=== PATIENT | female | born 1940 | race Caucasian/White ===

== ENCOUNTER 2024-10-31 16:02 | Emergency (ER) | payer OTHER, MEDICARE, MEDICAID, SELFPAY ==
[2024-10-31 16:05] VITALS: BMI 19.5
[2024-10-31 16:08] VITALS: PULSE 88; RESP 18; O2SAT 96
--- NOTE | 2024-10-31 16:15 | XR_ITS ---
Examination: CT brain head without contrast. 2-D sagittal coronal reconstructions Date and time of exam:October 31, 2024 1755 hrs. Comparison May 05, 2021 Indications: Patient fell this morning with injury to the head, head pain headache post injury CTDI: vol (mGy):47.3 DLP: (mGycm):999 Technique: Multiple CT axial sections of the brain have been obtained, 5 mm slice thickness. Contrast has not been administered. 2-D sagittal, coronal reconstructions have been obtained Low dose protocols were performed. One or more of the following dose reduction techniques were used; automated exposure control, adjustment of the mA and/or KV according to patient size, use of iterative reconstruction technique. Findings: No significant ventricular enlargement. Intra-axial or extra-axial hemorrhage density is not seen. No mass effect or midline shift Basal cisterns are not remarkable. Fourth ventricle is midline. Cranial vault intact. Impression: Negative for acute hemorrhage, mass effect or midline shift
--- NOTE | 2024-10-31 16:16 | XR_ITS ---
Examination: CT cervical spine without contrast 2-D sagittal reconstructions 2-D coronal reconstructions 3-D reconstructions. Exam date and time:October 31, 2024 1755 hrs. Indications: Patient fell this morning with injury to the neck, neck pain Comparison: May 05, 2021 CTDI:vol (mGy) 11.9 DLP: (mGycm) 248 Technique: Multiple 2 mm axial sections of the cervical spine have been obtained. The coronal and sagittal reconstructions have been obtained. 3-D reconstructions have been obtained. Low dose protocols were performed. One or more of the following dose reduction techniques were used; automated exposure control, adjustment of the mA and/or KV according to patient size, use of iterative reconstruction technique. Findings: Axial sections demonstrate intact base of the skull. C1 exhibit satisfactory relationship to the odontoid. No acute cervical vertebral body fracture seen. Alignment posterior spinous processes satisfactory. Prominent osteopenia Fusion C5-C6 Mild old appearing wedging T2, T3 Impression: No acute cervical fracture.
--- NOTE | 2024-10-31 16:16 | XR_ITS ---
Examination: CT maxillofacial, without intravenous contrast. 2-D sagittal reconstructions. 3-D reconstructions. Date and time of exam:October 31, 2024 1755 hrs. Comparison August 23, 2020 CTDI: vol (mGy):19.6 DLP: (mGycm):365 Indications: Patient fell this morning with injury to the face, forehead hematoma Technique: Multiple axial images of maxillofacial region, 3.0 mm slice thickness. 2-D sagittal and coronal reconstructions. 3-D reconstructions. Low dose protocols were performed. One or more of the following dose reduction techniques were used; automated exposure control, adjustment of the mA and/or KV according to patient size, use of iterative reconstruction technique. Findings: Soft tissue for head swelling Frontal bone frontal sinuses intact No nasal bone fracture Orbital rims intact No depression zygomatic arches Pterygoid plates maxilla and the mandible intact Impression: No acute facial fracture.
[2024-10-31 16:31] VITALS: BP 149/94; PULSE 76; RESP 19; TEMP 36.4; O2SAT 99
[2024-10-31 16:32] VITALS: BP 149/94; PULSE 71; RESP 70; TEMP 36.4; O2SAT 98
--- NOTE | 2024-10-31 16:40 | PD.EDFALL ---
ED Fall Injury RME/HPI General Chief Complaint: Fall Stated Complaint: FALL Time Seen by Provider: 10/31/24 16:10 Arrival date/time: 10/31/24 16:02 RME / HPI RME / HPI Narrative: This section includes all my notes and documentations, including HPI, PE, MDM, Procedure Notes, and PLAN. Vishal Hidalgo MD HPI: 84 year old female with history of Alzheimer's disease, dementia, diabetes, hyperlipidemia, anxiety presents to the ED [facility] from [facility] for evaluation of head injury after a fall today. Per medics, [place] staff reported patient fell forward from her wheelchair, striking her head on the floor. No LOC reported. No other complaints. ROS: All negative except as documented in HPI. Physical Exam: General:? Awake, confused at baseline.?? Head: 2.5 cm full?skin thickness laceration on the forehead with active bleeding. Eyes:? Conjunctivae and lids clear.?? ENT:? No nasal congestion.?? Neck:? Supple.?? Lungs:? No respiratory distress.?? Skin:? Warm and dry.?? Neuro:? Awake, confused at baseline. Laceration repair procedure note: The wound was prepped and draped in normal sterile fashion. Local anesthesia achieved with 1% lidocaine, 2 mL. Profuse irrigation performed with normal saline. Wound repaired with 7 apollo. Good approximation and hemostasis achieved. Tdap ordered. Topical ABX and dressing ordered. Patient tolerated well with no complications. 1800: Patient was signed out to Dr. Johnson pending UA and CT results and final disposition. Vishal Hidalgo MD Related Data Home Medications ?Medication ?Instructions ?Recorded ?Confirmed acetaminophen 650 mg rectal 650 mg IA Q4H PRN Fever 04/16/21 01/14/23 suppository bisacodyl 10 mg rectal suppository 10 mg IA Q72H PRN Constipation 04/16/21 01/14/23 lorazepam 0.5 mg tablet (Ativan) 0.25 mg PO Q6H PRN Anxiety 04/16/21 01/14/23 melatonin 5 mg chewable tablet 15 mg PO HS 04/16/21 01/14/23 ondansetron 8 mg disintegrating 8 mg PO Q6H PRN Nausea And Vomiting 04/16/21 01/14/23 tablet morphine concentrate 100 mg/5 mL 10 mg PO Q4H PRN Pain 04/17/21 01/14/23 (20 mg/mL) oral solution gabapentin 300 mg capsule 300 mg PO BID 01/14/23 01/14/23 oxymetazoline 0.05 % nasal spray 2 spray intranasal DAILY 01/14/23 01/14/23 (Afrin (oxymetazoline)) Allergies Allergy/AdvReac Type Severity Reaction Status Date / Time No Known Allergies Allergy Verified 01/17/23 08:36 Review of Systems Review of Systems Systems Reviewed: All systems reviewed, normal except as documented Past Medical History Past Medical History NEUROLOGIC: Positive Neurological Disorders, Dementia, Peripheral Neuropathy and Head Trauma CARDIAC: Positive Hypercholesterolemia RESPIRATORY: Positive Pneumonia GASTROINTESTINAL: Positive Gastrointestinal Disorders and Colitis GENITOURINARY: Positive Genitourinary Disorders REPRODUCTIVE: Positive Previous Pregnancies MUSCULOSKELETAL: Positive Musculoskeletal Disorders, Arthritis and Fractures (hip) ENT: Positive Head Trauma PSYCHO/SOCIAL: Positive Psychiatric Problems, Depression and Anxiety OTHER HISTORY: Positive Falls, Chicken Pox, Measles, Mumps and Pertussis Family History FAMILY HISTORY: Positive Family Cardiac Disorders, Family Cancer and Family Surgery Surgical History SURGICAL: Positive Open Reduction Internal Fixation (left) and Hysterectomy Social History SMOKING STATUS: Former smoker SUBSTANCE USE: does not use ED Exam Narrative Physical exam: As noted in HPI Course Quality Measures none Orders Category Date Time Status Straight [In and Out Catheter] X1 Care 10/31/24 16:15 Completed Wound Care [Wound Care] NOW Care 10/31/24 16:[address] cervical spine wo con Stat Exams 10/31/24 16:[address] facial bones wo con Stat Exams 10/31/24 16:[address] head/brain wo con Stat Exams 10/31/24 16:15 Completed UA [Urinalysis] Stat Lab 10/31/24 17:48 Completed Bacitracin Oint pkt Med 10/31/24 16:16 Discontinued 1 gm TOP X1 ONE Tet,Diphth,Pertuss(Acell)-Tdap [Boostrix Vacc] Med 10/31/24 16:16 Discontinued 0.5 ml IMI .ONCE ONE Vital Signs Vital signs: Vital Signs Temperature 97.6 F 10/31/24 16:31 Pulse Rate 76 10/31/24 16:31 Respiratory Rate 19 10/31/24 16:31 Blood Pressure 149/94 H 10/31/24 16:31 Pulse Oximetry (%) 99 10/31/24 16:31 Oxygen Delivery Method Room Air 10/31/24 16:31 Pulse ox is 99% on room air which is adequate. Fall MDM Narrative MDM Narrative:: IColette am scribing for and in the presence of Dr. Hidalgo. Patient data External records reviewed:: [facility] previous records (I reviewed ED visit on 04/17/2021), EMS form and [facility] records (I reviewed pmhx and medication list from [facility] ) Clinical information provided by:: EMS Social determinants that could affect healthcare access:: housing (SNF resident ) Patient has the following chronic illnesses:: Alzheimer's disease, dementia, diabetes, hyperlipidemia, anxiety How is presenting disease/condition affected by chronic disease/condition?: exacerbated by Evaluation data The following diagnostics were reviewed and interpreted by me:: other (specify) (Diagnostic test results pending) Lab and/or radiology exams considered but not ordered:: None Interpretation Summary: Diagnostic test results pending Medications / Prescriptions Medications or Prescriptions considered but not ordered:: None Medication administrations:: Medication Administration History Discontinued Medications Bacitracin (Bacitracin Oint 1 Gm Packet) 1 gm TOP X1 ONE Stop: 10/31/24 16:17 Last Admin: 10/31/24 17:18 Dose: 1 gm Documented By: NICHOLE Comments: SCANNER NOT WORKING Diphtheria/Tetanus/Acell Pertussis (Diphth,Pertuss(Acell),Tet Vac 0.5 Ml Vial) 0.5 ml IMi .ONCE ONE Stop: 10/31/24 16:17 Last Admin: 10/31/24 17:19 Dose: 0.5 ml Documented By: NICHOLE Tdap and topical bacitracin ordered Consultations Consultation(s) initiated? (list below): No Diagnosis Fall Differential Diagnosis: other (Abrasion, laceration, fracture, intracranial bleed) Most likely diagnosis given after review of the tests above:: Diagnostic tests pending Admission Indicated Admission indicated?: not indicated Explain why admission is indicated or not indicated:: Diagnostic tests pending Admission Request Was there a request for admission?: No Disposition Plan Disposition Plan: other (specify) (Signed out to Dr. Johnson with diagnostic tests pending) Discharge Plan Plan Patient Disposition: Xfer Skilled Nsg Fac (SNF) Disposition Comment: [facility] Prescriptions/Referrals Prescriptions/Med Rec: No Action melatonin 5 mg Tablet,Chewable 15 mg PO HS acetaminophen 650 mg Suppository 650 mg IA Q4H PRN (Reason: Fever) ondansetron [Zofran ODT] 8 mg Tablet,Disintegrating 8 mg PO Q6H PRN (Reason: Nausea And Vomiting) lorazepam [Ativan] 0.5 mg Tablet 0.25 mg PO Q6H PRN (Reason: Anxiety) bisacodyl 10 mg Suppository 10 mg IA Q72H PRN (Reason: Constipation) morphine concentrate 100 mg/5 mL (20 mg/mL) solution 10 mg PO Q4H PRN (Reason: Pain) Patient Comments: 10 mg Q4h PO PRN;1 mg Q2h PO PRN;5 mg Q4h PO PRN gabapentin 300 mg Capsule 300 mg PO BID oxymetazoline [Afrin (oxymetazoline)] 0.05 % [place],Non-Aerosol 2 spray INTRANASAL DAILY Referrals: Noam Leavitt MD [Primary Care Provider] - In 1 week Problem List Clinical Impression: Fall, Forehead laceration Patient/Caregiver Discharge Instructions Education Materials: ED Fall with Uncertain Cause, ED Laceration, Face: Stitches or Tape Print Language: Belgian Stand Alone Forms: Ericka Award Info., Patient Portal Info Letter
[2024-10-31] MEDS: BACITRACIN OINT 1 GM PACKET TOP (17:18)
[2024-10-31] MEDS: DIPHTH,PERTUSS(ACELL),TET VAC 0.5 ML VIAL IMi (17:19)
--- NOTE | 2024-10-31 17:56 | PC.NURSE ---
Pt off to CT
[2024-10-31 18:14] VITALS: BP 159/89; PULSE 63; RESP 19; TEMP 36.8; O2SAT 100
[2024-10-31 18:16] LABS: Collection Type, Urine Clean Catch; RBC,Urine 0 /hpf (0-3); Squamous Epithelial Cell,Urine 0 /hpf (0-5)
[2024-10-31 18:42] LABS: Bacteria,Urine Rare; Bilirubin,Urine Negative (Negative); Blood,Urine Negative (Negative); Clarity,Urine Turbid (Clear/Hazy); Color,Urine Lt-Yellow (Lt Yel-Yel); Glucose, Urine Negative (Negative); Hyaline Casts,Urine < 1 /hpf (0-1); Ketones,Urine Negative (Negative); Leukocyte Esterase,Urine Positive (Negative); Nitrite,Urine Positive (Negative); PH,Urine 7.5 (5.0-7.0); Protein,Urine Negative (Neg - Trace); Specific Gravity,Urine 1.007 (1.001-1.035); Urobilinogen,Urine Negative mg/dL (0.0-1.0); WBC,Urine 18 /hpf (0-5)
--- NOTE | 2024-10-31 19:05 | EDNOTE_ITS ---
Emergency Room Addendum Addendum Narrative: 1800: Care assumed from Dr. Hidalgo, the previous shift emergency physician. Past medical, surgical, social and family history reviewed. Vitals and home medications reviewed. I will assume the care of the patient at this time, pending remainder of diagnostics tests and final disposition. Please refer to the emergency department record for history and examination from initial visit.? Physical exam by me shows patient under no acute distress at this time. 1920: Patient remains clinically stable throughout the emergency department visit. Re-assessment at the time of disposition demonstrates that the patient is in no acute distress. We reviewed all the results, analysis, and treatment plans. Patient is amenable to discharge. Strict return precautions were outlined. Patient was discharged in stable condition. RADIOLOGY Procedure(s): CT facial bones wo [facility] Accession Number(s): [id number] cc: Noam Leavitt MD; Vishal Hidalgo MD; Igor Kumar MD~ Examination: CT maxillofacial, without intravenous contrast. 2-D sagittal reconstructions. 3-D reconstructions. Date and time of exam:October 31, 2024 1755 hrs. Comparison August 23, 2020 CTDI: vol (mGy):19.6 DLP: (mGycm):365 Indications: Patient fell this morning with injury to the face, forehead hematoma Technique: Multiple axial images of maxillofacial region, 3.0 mm slice thickness. 2-D sagittal and coronal reconstructions. 3-D reconstructions. Low dose protocols were performed. One or more of the following dose reduction techniques were used; automated exposure control, adjustment of the mA and/or KV according to patient size, use of iterative reconstruction technique. Findings: Soft tissue for head swelling Frontal bone frontal sinuses intact No nasal bone fracture Orbital rims intact No depression zygomatic arches Pterygoid plates maxilla and the mandible intact Impression: No acute facial fracture. Dictated By: Igor Kumar MD Procedure(s): CT cervical spine wo con Accession Number(s): [id number] cc: Noam Leavitt MD; Vishal Hidalgo MD; Igor Kumar MD~ Examination: CT cervical spine without contrast 2-D sagittal reconstructions 2-D coronal reconstructions 3-D reconstructions. Exam date and time:October 31, 2024 1755 hrs. Indications: Patient fell this morning with injury to the neck, neck pain Comparison: May 05, 2021 CTDI:vol (mGy) 11.9 DLP: (mGycm) 248 Technique: Multiple 2 mm axial sections of the cervical spine have been obtained. The coronal and sagittal reconstructions have been obtained. 3-D reconstructions have been obtained. Low dose protocols were performed. One or more of the following dose reduction techniques were used; automated exposure control, adjustment of the mA and/or KV according to patient size, use of iterative reconstruction technique. Findings: Axial sections demonstrate intact base of the skull. C1 exhibit satisfactory relationship to the odontoid. No acute cervical vertebral body fracture seen. Alignment posterior spinous processes satisfactory. Prominent osteopenia Fusion C5-C6 Mild old appearing wedging T2, T3 Impression: No acute cervical fracture. Dictated By: Igor Kumar MD Procedure(s): CT head/brain wo con Accession Number(s): [id number] cc: Noam Leavitt MD; Vishal Hidalgo MD; Igor Kumar MD~ Examination: CT brain head without contrast. 2-D sagittal coronal reconstructions Date and time of exam:October 31, 2024 1755 hrs. Comparison May 05, 2021 Indications: Patient fell this morning with injury to the head, head pain headache post injury CTDI: vol (mGy):47.3 DLP: (mGycm):999 Technique: Multiple CT axial sections of the brain have been obtained, 5 mm slice thickness. Contrast has not been administered. 2-D sagittal, coronal reconstructions have been obtained Low dose protocols were performed. One or more of the following dose reduction techniques were used; automated exposure control, adjustment of the mA and/or KV according to patient size, use of iterative reconstruction technique. Findings: No significant ventricular enlargement. Intra-axial or extra-axial hemorrhage density is not seen. No mass effect or midline shift Basal cisterns are not remarkable. Fourth ventricle is midline. Cranial vault intact. Impression: Negative for acute hemorrhage, mass effect or midline shift Dictated By: Igor Kumar MD
[2024-10-31 19:42] VITALS: BP 116/65; PULSE 74; RESP 18; O2SAT 96
--- NOTE | 2024-10-31 19:44 | PC.NURSE ---
Pt is sleeping. Arouses to voice. Appears in NAD. Pts son is at bedside.
--- NOTE | 2024-10-31 20:00 | PC.NURSE ---
Pts son with pt. MD spoke with him. Pt awake and in NAD.
== END 2024-10-31 20:33 | disposition skilled nursing facility (03) ==
PROVIDERS: Emergency Medicine; Emergency Provider Emergency Medicine; PCP Hospitalist
DX: S01.81XA Laceration without foreign body of other part of head, initial encounter (principal); S19.9XXA Unspecified injury of neck, initial encounter; W18.39XA Other fall on same level, initial encounter; Z23 Encounter for immunization
CPT/HCPCS: 12011; 70450; 70486; 72125; 81001; 90471; 90715; 99284; A9270